=== PATIENT | male | born 1980 | race African-American/Black ===

== ENCOUNTER 2021-03-04 20:09 | Emergency (ER) | payer SELFPAY ==
[~2021-03-04] VITALS: Ht 177.8 cm; Wt 90.7 kg
[2021-03-04] MEDS ORDERED: CETIRIZINE HCL10 MG PO (21:20)
[2021-03-04] MEDS ORDERED: AMLODIPINE BESY10 MG PO (21:20)
[2021-03-04] MEDS ORDERED: TADALAFIL20 M1 PO (21:21)
[2021-03-04] MEDS ORDERED: TESTOSTERO200 MG/1 M IM (21:21)
--- NOTE | 2021-03-07 16:34 | EKG ---
[facility] [address] [facility] [place] [address] Signed Normal sinus rhythm Minimal voltage criteria for LVH, may be normal variant ( [place] product ) Borderline ECG No previous ECGs available Confirmed by GAGANDEEP GOODWIN MD ([id number]) on 03/07/2021 4:34:43 PM Electronically Signed By: GAGANDEEP GOODWIN MD 03/07/21 1634 PATIENT NAME: KATHYATRU PUMA Electrocardiogram DATE OF : 78 PHYSICIAN: GAGANDEEP GOODWIN MD REPORT #: [id number] REPORT IS CONFIDENTIAL AND NOT TO BE RELEASED WITHOUT AUTHORIZATION
== END 2021-03-06 11:57 | disposition home or self-care (01) ==
LOC: ED 20:09
DX: F22 Delusional disorders (principal); F19.10 Other psychoactive substance abuse, uncomplicated; Z20.822 Contact with and (suspected) exposure to COVID-19; I10 Essential (primary) hypertension; Z79.899 Other long term (current) drug therapy
CPT/HCPCS: 80053; 81001; 84443; 85025; 93005; 93010; 99285-25; C9803; G0480; U0003